=== PATIENT | female | born 1965 | race Caucasian/White ===

== ENCOUNTER 2016-05-21 18:35 | Emergency (ER) | payer OTHER ==
[~2016-05-21] VITALS: Ht 162.6 cm; Wt 93.3 kg
[~2016-05-21 18:35] MED LIST: ASPIR-LOW81 MG PO; ATORVASTATIN CA40 MG PO; BRILINTA90 MG PO; CYANOCOBALAM1000 MCG PO; LOSARTAN POTASS25 MG PO; LOSARTAN-HCTZ1 EAC1 PO; METFORMIN HCL1000 MG PO; METOPROLOL SUC100 MG PO; METOPROLOL SUCC50 MG PO; MIRTAZAPINE15 MG PO; TRADJENTA5 MG PO
[2016-05-21 19:04] LABS: MCH 26.4 PG (29.0-34.0); MCHC 32.4 G/DL (30.0-36.0); MCV 81.3 FL (83-99); MEAN PLAT.VOLUME 12.3 uM^3 (9.5-12.4); PLATELET COUNT 248 K/uL (156-360); RBC DIS.WIDTH-CV 17.5 % (11.8-14.6); RBC DIS.WIDTH-SD 50.9 % (39-53); RED BLOOD COUNT 5.04 M/uL (3.80-5.20); WHITE BLOOD COUNT 9.7 K/uL (4.1-10.2)
[2016-05-21 19:15] LABS: CHLORIDE 107 mEq/L (99-109); SODIUM 143 mEq/L (136-147)
[2016-05-21 19:16] LABS: GLUCOSE 123 mg/dL (70-99)
[2016-05-21 19:18] LABS: ANION GAP 8 MEQ/L (2-14)
[2016-05-21 19:20] LABS: GFR ESTIMATE (CALCULATED) > 59 mL/min/
[2016-05-21 19:21] LABS: UREA NITROGEN (BUN) 19 mg/dL (9-23)
[2016-05-21 19:25] LABS: TROP-I INTERPRETATION NEGATIVE; TROPONIN-I < 0.01 ng/mL (0.0-0.30)
[2016-05-21 20:26] LABS: D-DIMER ELISA 0.35 mg/L FEU (< 0.57)
[2016-05-21 21:19] LABS: TROP-I INTERPRETATION NEGATIVE; TROPONIN-I < 0.01 ng/mL (0.0-0.30)
[2016-05-21 22:05] VITALS: BP 127/66
== END 2016-05-21 22:06 | disposition home or self-care (01) ==
LOC: EME 18:35
PROVIDERS: Physician Assistant
DX: R07.9 Chest pain, unspecified (principal); E11.9 Type 2 diabetes mellitus without complications; I10 Essential (primary) hypertension; I25.2 Old myocardial infarction; Z98.61 Coronary angioplasty status; Z79.82 Long term (current) use of aspirin; Z79.84 Long term (current) use of oral hypoglycemic drugs; Z87.891 Personal history of nicotine dependence
CPT/HCPCS: 71020; 80048; 84443; 84484; 85027; 85379; 93005; 99281; 99284